=== PATIENT | male | born 1980 | race African-American/Black ===

== ENCOUNTER 2018-05-01 19:53 | Emergency (ER) | payer OTHER ==
[~2018-05-01] VITALS: Ht 175.3 cm; Wt 64.1 kg
[2018-05-01 19:57] VITALS: Ht 175.3 cm; Wt 64.1 kg
[2018-05-01] MEDS ORDERED: ONDANSETRON INJ 2 MG/ML 2 ML VIAL IV STA (20:08)
[2018-05-01] MEDS ORDERED: HYDROmorphone INJ 0.5 MG/0.5 ML SYR IV STA (20:08)
[2018-05-01] MEDS ORDERED: SODIUM CHLORIDE 0.9% 1000ML 1,000 ML IV STA (20:08)
--- NOTE | 2018-05-01 20:12 | EMERGENCY ROOM VISIT NOTE ---
History Report prepared by Darryl: Chad Narvaez Under the Supervision of: Dr. Sanjeev Pike M.D. First contact with patient: 20:00 Chief Complaint: ABDOMINAL PAIN Stated Complaint: NAUSEA,VOMITING,SEVERE ABDOMINAL PAIN History of Present Illness The patient is a 37 year old male who presents to the Emergency Room with complaints of constant abdominal pain across his entire stomach that began 2 days ago. He reports that he is vomiting every time he eats or drinks. He also reports that there may have been some traces of blood in his vomit but none in his urine or stool. He denies being assaulted or eating any different foods. The patient has a history of sickle cell and no history of surgery on his abdomen. He admits to smoking tobacco. In labs sent from the detention the patient had a hemoglobin of 9.4, reticulocyte 5.96 April 12. Source of History: patient Onset: 2 days ago Position: abdomen Timing: constant Associated Symptoms: + nausea, + vomiting, + hematochezia, No melena, No urinary symptoms Review of Systems See HPI for pertinent positives and negatives. A total of ten systems were reviewed and were otherwise negative. Past Medical & Surgical Medical Problems: (1) Sickle cell anemia Family History Patient reports no known family medical history. Social History Smoking Status: Current Every Day Smoker Occupation Status: other (Prisoner) Current/Historical Medications Scheduled Buspirone Hcl (Buspirone Hcl), 10 MG PO HS Duloxetine HCl (Cymbalta), 120 MG PO HS Folic Acid (Folvite), 2 MG PO DAILY Hydroxyurea (Hydrea Cap), 1,000 MG PO DAILY Multivitamin (Multivitamin), 1 TAB PO DAILY Naproxen (Naprosyn), 500 MG PO BID Scheduled PRN Acetaminophen/Codeine (Tylenol W/Codeine #3), 2 TAB PO HS PRN for Pain Senna (Senokot), 17.2 MG PO DAILY PRN for Constipation Allergies Coded Allergies: No Known Allergies (Unverified , 05/01/18) Physical Exam Vital Signs Date Time Temp Pulse Resp B/P (MAP) Pulse Ox O2 Delivery O2 Flow Rate FiO2 05/01/18 22:02 37.2 87 21 135/82 100 05/01/18 21:50 87 21 135/82 100 Room Air 05/01/18 19:57 37.2 102 18 137/88 100 Room Air Physical Exam Physical Exam GENERAL: He is oriented to person, place, and time. He appears well-developed and well-nourished. He does not appear distressed. Patient is a prisoner accompanied with guards, he is in shackles. HENT: Exam performed. Head: Normocephalic and atraumatic. Right Ear: External ear normal. No mastoid tenderness. Left Ear: External ear normal. No mastoid tenderness. Mouth/Throat: The oropharynx is clear and moist. No trismus in the jaw. No dental abscesses or uvula swelling. No oropharyngeal exudate or tonsillar abscesses. EYES: Conjunctivae and EOM are normal. Pupils are equal, round, and reactive to light. Right eye exhibits no discharge. Left eye exhibits no discharge. No scleral icterus. NECK: Normal range of motion. Neck supple. No JVD present. No spinous process tenderness present. No carotid bruit present. No rigidity. No tracheal deviation and normal range of motion present. No Brudzinski's sign and no Kernig 's sign noted. CV: Normal rate, regular rhythm, normal heart sounds and intact distal pulses. There is no peripheral edema. Palpable radial pulses bue. PULM/CHEST: Effort normal and breath sounds normal. No respiratory distress. No stridor. He has no wheezes. He has no rales. Chest Wall: He exhibits no tenderness. ABD: The abdomen is soft. Bowel sounds are normal. He has no distension. No mass is present. There is no tenderness. Diffused pain with palpation. There is no rebound, no guarding, no Haynes's sign and no tenderness at McBurney's point. Rovsig negative. MUSC/SKEL: Normal range of motion. There is no peripheral edema, tenderness or deformity. LYMPH: No cervical adenopathy. NEURO: He is alert and oriented to person, place, and time. He has normal strength. No cranial nerve deficit or sensory deficit. Coordination and gait normal. GCS eye subscore is 4. GCS verbal subscore is 5. GCS motor subscore is 6. Cerebellar tests wnl. SKIN: Skin is warm and dry. He is not diaphoretic. PSYCH: He has a normal mood and affect. Behavior is normal. Judgment and thought content normal. Medical Decision & Procedures ER Provider Diagnostic Interpretation: Radiology results as stated below per my review and radiologist interpretation: CT ABD/PELVIS IV CONTRAST ONLY CLINICAL HISTORY: Abdominal pain, fever, history of sickle cell. COMPARISON STUDY: None. TECHNIQUE: Following the IV administration of 93 mL of Optiray-320, CT scan of the abdomen and pelvis was performed from the lung bases to the proximal femurs. Images are reviewed in the axial, sagittal, and coronal planes. IV contrast was administered without complication. A dose lowering technique was utilized adhering to the principles of ALARA. CT DOSE: 249.46 mGy.cm FINDINGS: Lower chest: The heart is normal in size and configuration, without pericardial effusion. The lung bases and pleural spaces are clear. Liver: The liver is mildly enlarged measuring 21 cm in length. No focal hepatic masses are visualized. The portal vein and hepatic veins appear patent. Gallbladder: Unremarkable. Spleen: There is a small calcified spleen consistent with prior infarction. This is a finding reported sickle cell disease. Pancreas: Unremarkable. Adrenal glands: Unremarkable. Kidneys: There is symmetric renal cortical enhancement. The kidneys are normal in size without hydronephrosis. Bowel: Evaluation the bowel is limited due to the lack of orally administered contrast and the paucity of intra-abdominal fat. There is suspected bowel wall thickening involving the ascending colon suspicious for a colitis. There is no acute diverticulitis. The appendix is not visualized. Peritoneum: There is no intraperitoneal free air or abdominal ascites. Vasculature: The abdominal aorta is normal in course and caliber. Adenopathy: None. Pelvic viscera: The bladder, and pelvic viscera are unremarkable. Skeletal structures: There is diffuse skeletal sclerosis, IMPRESSION: 1. Chronically infarcted calcified spleen 2. No evidence of bowel obstruction. No evidence of free air 3. Skeletal sclerosis, finding reported sickle cell 4. Limited evaluation of the bowel due to the lack of oral contrast and the paucity of intra-abdominal fat. Nevertheless there is suspected bowel wall thickening involving the ascending colon suspicious for a colitis Electronically signed by: Dion Irwin M.D. 05/01/2018 9:42 PM Dictated Date/Time: 05/01/2018 9:36 PM Laboratory Results 05/01/18 20:27 Red Blood Count 3.48, Mean Corpuscular Volume 87.4, Mean Corpuscular Hemoglobin 30.2, Mean Corpuscular Hemoglobin Concent 34.5, Mean Platelet Volume 9.6, Neutrophils (%) (Auto) 81.3, Lymphocytes (%) (Auto) 3.2, Monocytes (%) (Auto) 14.6, Eosinophils (%) (Auto) 0.1, Basophils (%) (Auto) 0.2, Neutrophils # (Auto ) 10.50, Lymphocytes # (Auto) 0.41, Monocytes # (Auto) 1.88, Eosinophils # (Auto ) 0.01, Basophils # (Auto) 0.02 05/01/18 20:27 Test 05/01/18 20:27 White Blood Count 12.90 K/uL (4.8-10.8) Red Blood Count 3.48 M/uL (4.7-6.1) Hemoglobin 10.5 g/dL (14.0-18.0) Hematocrit 30.4 % (42-52) Mean Corpuscular Volume 87.4 fL (80-100) Mean Corpuscular Hemoglobin 30.2 pg (25-34) Mean Corpuscular Hemoglobin Concent 34.5 g/dl (32-36) Platelet Count 662 K/uL (130-400) Mean Platelet Volume 9.6 fL (7.4-10.4) Neutrophils (%) (Auto) 81.3 % Lymphocytes (%) (Auto) 3.2 % Monocytes (%) (Auto) 14.6 % Eosinophils (%) (Auto) 0.1 % Basophils (%) (Auto) 0.2 % Neutrophils # (Auto) 10.50 K/uL (1.4-6.5) Lymphocytes # (Auto) 0.41 K/uL (1.2-3.4) Monocytes # (Auto) 1.88 K/uL (0.11-0.59) Eosinophils # (Auto) 0.01 K/uL (0-0.5) Basophils # (Auto) 0.02 K/uL (0-0.2) RDW Standard Deviation 62.2 fL (36.4-46.3) RDW Coefficient of Variation 19.6 % (11.5-14.5) Immature Granulocyte % (Auto) 0.6 % Immature Granulocyte # (Auto) 0.08 K/uL (0.00-0.02) Absolute Reticulocyte Count 0.15 10^6/uL (0.02-0.10) Percent Reticulocyte Count 4.4 % (0.5-2.0) Anion Gap 10.0 mmol/L (3-11) Est Creatinine Clear Calc Drug Dose 120.7 ml/min Estimated GFR () 135.1 Estimated GFR (Non- 116.6 BUN/Creatinine Ratio 11.1 (10-20) Calcium Level 8.8 mg/dl (8.5-10.1) Total Bilirubin 1.7 mg/dl (0.2-1) Direct Bilirubin 0.7 mg/dl (0-0.2) Aspartate Amino Transf (AST/SGOT) 60 U/L (15-37) Alanine Aminotransferase (ALT/SGPT) 58 U/L (12-78) Alkaline Phosphatase 121 U/L (45-117) Lactate Dehydrogenase 402 U/L (87-241) Total Protein 7.8 gm/dl (6.4-8.2) Albumin 3.9 gm/dl (3.4-5.0) Lipase 91 U/L (73-393) Laboratory results reviewed by me Medications Administered Medications (Trade) Dose Ordered Sig/Kika Route Start Time Stop Time Status Last Admin Dose Admin Sodium Chloride 1,000 ml @ 999 mls/hr Q1H1M STAT IV 05/01/18 20:08 05/01/18 21:08 DC 05/01/18 20:33 999 MLS/HR Hydromorphone HCl (Dilaudid Inj) 0.5 mg NOW STAT IV 05/01/18 20:08 05/01/18 20:12 DC 05/01/18 20:33 0.5 MG Ondansetron HCl (Zofran Inj) 4 mg NOW STAT IV 05/01/18 20:08 05/01/18 20:12 DC 05/01/18 20:33 4 MG ED Course 1999: The patient was evaluated in room C3. A complete history and physical exam was performed. 2008: Zofran 4mg IV, Dilaudid 0.5mg IV, Sodium Chloride 1000ml @ 999mls/hr IV 2155: Vitals are stable. Labs showed slight leukocytosis at 12.9, reticulocyte count was 4.4. No signs of aplastic crisis. CT of the abdomen showed a chronically infarcted spleen and findings that are suspicious to colitis in ascending colon. Repeat abdominal exam showed no pain on palpation. Patient will be discharged with police escort back to the detention.DISCHARGE - Plan of care discussed with patient and questions answered. The patient was given both verbal and printed discharge instructions. The patient verbalized understanding and ability to comply. The patient is to seek outpatient follow up as noted in the discharge instructions. The patient verbalized understanding and ability to comply. The patient is discharged in stable condition. The patient was instructed to return for worsening symptoms. Medical Decision Vitals are stable. Labs showed slight leukocytosis at 12.9, reticulocyte count was 4.4. No signs of aplastic crisis. CT of the abdomen showed a chronically infarcted spleen and findings that are suspicious to colitis in ascending colon. Repeat abdominal exam showed no pain on palpation. Patient will be discharged with police escort back to the detention.DISCHARGE - Plan of care discussed with patient and questions answered. The patient was given both verbal and printed discharge instructions. The patient verbalized understanding and ability to comply. The patient is to seek outpatient follow up as noted in the discharge instructions. The patient verbalized understanding and ability to comply. The patient is discharged in stable condition. The patient was instructed to return for worsening symptoms. Medication Reconcilliation Current Medication List: was personally reviewed by me Blood Pressure Screening Patient's blood pressure: Normal blood pressure Impression Primary Impression: Abdominal pain Additional Impression: Sickle cell anemia Scribe Attestation The scribe's documentation has been prepared under my direction and personally reviewed by me in its entirety. I confirm that the note above accurately reflects all work, treatment, procedures, and medical decision making performed by me. The chart was completed utilizing [employer] Speech voice recognition software. Grammatical errors, random word insertions, pronoun errors, and incomplete sentences are an occasional consequence of this system due to software limitations, ambient noise, and hardware issues. Any formal questions or concerns about the content, text, or information contained within the body of this dictation should be directly addressed to the physician for clarification. Departure Information Dispostion Home / Self-Care Forms Call Back Authorization, HOME CARE DOCUMENTATION FORM, IMPORTANT VISIT INFORMATION Patient Instructions My [facility] Problem Qualifiers Primary Impression: Abdominal pain Abdominal location: unspecified location Qualified Codes: R10.9 - Unspecified abdominal pain
[2018-05-01 20:39] LABS: BASO % 0.2 %; BASO ABS # 0.02 K/uL (0-0.2); EOS % 0.1 %; EOS ABS # 0.01 K/uL (0-0.5); HEMATOCRIT 30.4 % (42-52); HEMOGLOBIN 10.5 g/dL (14.0-18.0); IG# 0.08 K/uL (0.00-0.02); LYMPH % 3.2 %; LYMPH ABS # 0.41 K/uL (1.2-3.4); MEAN CELL VOLUME 87.4 fL (80-100); MEAN CORPUSCULAR HEMOGLOBIN 30.2 pg (25-34); MEAN CORPUSCULAR HGB CONC 34.5 g/dl (32-36); MEAN PLATELET VOLUME 9.6 fL (7.4-10.4); MONO % 14.6 %; MONO ABS # 1.88 K/uL (0.11-0.59); NEUT % 81.3 %; PLATELET COUNT 662 K/uL (130-400); RED CELL DISTRIBUTION WIDTH CV 19.6 % (11.5-14.5); RED CELL DISTRIBUTION WIDTH SD 62.2 fL (36.4-46.3); RETIC COUNT % 4.4 % (0.5-2.0)
[2018-05-01] MEDS ORDERED: CYM/60 PO (20:43)
[2018-05-01] MEDS ORDERED: BUSP-8 PO (20:48)
[2018-05-01] MEDS ORDERED: ACET300T3 PO (20:51)
[2018-05-01] MEDS ORDERED: FOLI1TAB8 PO (20:52)
[2018-05-01] MEDS ORDERED: HYDR500C3 PO (20:57)
[2018-05-01] MEDS ORDERED: NAPR-22 PO (20:59)
[2018-05-01] MEDS ORDERED: OPTIRAY 320 IV PRN (21:00)
[2018-05-01 21:01] LABS: ALBUMIN 3.9 gm/dl (3.4-5.0); CALCIUM 8.8 mg/dl (8.5-10.1); CREATININE 0.76 mg/dl (0.60-1.40); POTASSIUM 4.3 mmol/L (3.5-5.1); TOTAL PROTEIN 7.8 gm/dl (6.4-8.2)
[2018-05-01] MEDS ORDERED: SENN-61 PO (21:01)
[2018-05-01] MEDS ORDERED: MULT-506 PO (21:02)
--- NOTE | 2018-05-01 21:44 | DIAGNOSTIC IMAGING REPORT ---
CT ABD/PELVIS IV CONTRAST ONLY CLINICAL HISTORY: Abdominal pain, fever, history of sickle cell. COMPARISON STUDY: None. TECHNIQUE: Following the IV administration of 93 mL of Optiray-320, CT scan of the abdomen and pelvis was performed from the lung bases to the proximal femurs. Images are reviewed in the axial, sagittal, and coronal planes. IV contrast was administered without complication. A dose lowering technique was utilized adhering to the principles of ALARA. CT DOSE: 249.46 mGy.cm FINDINGS: Lower chest: The heart is normal in size and configuration, without pericardial effusion. The lung bases and pleural spaces are clear. Liver: The liver is mildly enlarged measuring 21 cm in length. No focal hepatic masses are visualized. The portal vein and hepatic veins appear patent. Gallbladder: Unremarkable. Spleen: There is a small calcified spleen consistent with prior infarction. This is a finding reported sickle cell disease. Pancreas: Unremarkable. Adrenal glands: Unremarkable. Kidneys: There is symmetric renal cortical enhancement. The kidneys are normal in size without hydronephrosis. Bowel: Evaluation the bowel is limited due to the lack of orally administered contrast and the paucity of intra-abdominal fat. There is suspected bowel wall thickening involving the ascending colon suspicious for a colitis. There is no acute diverticulitis. The appendix is not visualized. Peritoneum: There is no intraperitoneal free air or abdominal ascites. Vasculature: The abdominal aorta is normal in course and caliber. Adenopathy: None. Pelvic viscera: The bladder, and pelvic viscera are unremarkable. Skeletal structures: There is diffuse skeletal sclerosis, IMPRESSION: 1. Chronically infarcted calcified spleen 2. No evidence of bowel obstruction. No evidence of free air 3. Skeletal sclerosis, finding reported sickle cell 4. Limited evaluation of the bowel due to the lack of oral contrast and the paucity of intra-abdominal fat. Nevertheless there is suspected bowel wall thickening involving the ascending colon suspicious for a colitis Electronically signed by: Dion Irwin M.D. 05/01/2018 9:42 PM Dictated Date/Time: 05/01/2018 9:36 PM
[2018-05-01 22:02] VITALS: BP 135/82; PULSE 87; TEMP 37.2; O2SAT 100
== END 2018-05-01 22:02 | disposition home or self-care (01) ==
LOC: C.EDB 19:54 → C.EDC 22:02
DX: R10.9 Unspecified abdominal pain (principal); D57.1 Sickle-cell disease without crisis; R11.2 Nausea with vomiting, unspecified; K92.1 Melena; Z79.899 Other long term (current) drug therapy; F17.200 Nicotine dependence, unspecified, uncomplicated

== ENCOUNTER 2018-05-04 09:54 | Emergency (ER) | payer OTHER ==
[~2018-05-04 09:54] MED LIST: ACET300T3 PO; BUSP-8 PO; CYM/60 PO; FOLI1TAB8 PO; HYDR500C3 PO; MULT-506 PO; NAPR-22 PO; SENN-61 PO
[2018-05-04 10:22] VITALS: BP 0/0; PULSE 0; O2SAT 0
--- NOTE | 2018-05-04 10:27 | EMERGENCY ROOM VISIT NOTE ---
History Report prepared by Darryl: Sukumar Shaffer Under the Supervision of: Dr. Casa Kerns D.O. First contact with patient: 09:46 Chief Complaint: CARDIAC ARREST Stated Complaint: CARDIAC ARREST History of Present Illness This HPI is limited secondary to cardiac arrest. The patient is a 37 year old male who [facility] the Emergency Room [facility] in cardiac arrest. Per nursing staff the patient was found in his cell today and appeared to have fallen off of the toilet. Upon EMS arrival the patient was in asystole. When EMS arrived to the department, they estimated that the patient had been down for 1 hour. Source of History: patient History Limited By: cardiac arrest Onset: 1 hour down time Review of Systems ROS limited secondary to cardiac arrest Past Medical & Surgical Medical Problems: (1) Sickle cell anemia Family History Patient reports no known family medical history. Social History Smoking Status: Current Every Day Smoker Occupation Status: other ([employer]) Current/Historical Medications Scheduled Buspirone Hcl (Buspirone Hcl), 10 MG PO HS Duloxetine HCl (Cymbalta), 120 MG PO HS Folic Acid (Folvite), 2 MG PO DAILY Hydroxyurea (Hydrea Cap), 1,000 MG PO DAILY Multivitamin (Multivitamin), 1 TAB PO DAILY Naproxen (Naprosyn), 500 MG PO BID Scheduled PRN Acetaminophen/Codeine (Tylenol W/Codeine #3), 2 TAB PO HS PRN for Pain Senna (Senokot), 17.2 MG PO DAILY PRN for Constipation Allergies Coded Allergies: No Known Allergies (Unverified , 05/01/18) Physical Exam Vital Signs Date Time Temp Pulse Resp B/P (MAP) Pulse Ox O2 Delivery O2 Flow Rate FiO2 05/04/18 10:22 0 0 0/0 0 05/04/18 09:56 0 05/04/18 09:55 0 Physical Exam CONSTITUTIONAL/VITAL SIGNS: Reviewed / noted above. GENERAL: Non-toxic in appearance. INTEGUMENTARY: Warm, dry, and [place]. HEAD: Normocephalic. EYES: The cornea appears slightly dry, pupils are fixed and mid-position. ENT/OROPHARYNX: The jaw is non-mobile. Teeth are clenched. LYMPHADENOPATHY/NECK: Is supple without lymphadenopathy or meningismus. RESPIRATORY: There is NO spontaneous respiratory effort. CARDIOVASCULAR: There are no palpable carotid pulses. GI/ABDOMEN: Soft and nontender. No organomegaly or pulsatile mass. No rebound or guarding. Normal bowel sounds. EXTREMITIES: The hands are flexed. BACK: No CVA tenderness. NEUROLOGICAL: Intact without focal deficits. PSYCHIATRIC: normal affect. MUSCULOSKELETAL: Normally developed with good muscle tone. Medical Decision & Procedures Procedure CPR ED Course 0954: Previous medical records were reviewed. The patient was evaluated in room B1. A complete history and physical examination was performed. 0957: time of was called. Medical Decision Differential includes acute cardiac dysrhythmia, microinfarction, CVA, TIA, dehydration, anemia, electrolyte disturbance, seizure, trauma, intracranial bleeding, acute vascular catastrophe, thoracic aortic dissection, PE, abdominal aortic aneurysm rupture, infection, hypoglycemia, overdose, trauma. This is a 37-year-old male who [facility]. The patient reportedly collapsed and CPR was started at the [facility]. The patient was found to be in asystole upon EMS arrival. Time from onset until arrival here was at least 1 hour. The patient remained in asystole despite ACLS intervention. CPR continued here while the patient was assessed. He has stiffness in the jaw and in the hands. There is no signs of life. There is no respiratory effort. There are no pulses. EKG shows asystole in 2 leads. The patient was pronounced shortly after arrival. Impression Primary Impression: Cardiac arrest Critical Care I have personally spent 30 minutes of critical care time in the direct management of this patient. This includes bedside care, interpretation of diagnostic studies, and testing, discussion with consultants, patient, and family members, and other required patient management activities. This 30 minutes is in excess of all separately billable procedures. Scribe Attestation The scribe's documentation has been prepared under my direction and personally reviewed by me in its entirety. I confirm that the note above accurately reflects all work, treatment, procedures, and medical decision making performed by me. Departure Information Dispostion Referrals Katie ACHARYA (PCP) Patient Instructions My [facility]
== END 2018-05-04 09:57 | disposition expired ==
LOC: C.EDB 09:54
DX: I46.9 Cardiac arrest, cause unspecified (principal); D57.1 Sickle-cell disease without crisis; F17.200 Nicotine dependence, unspecified, uncomplicated